=== PATIENT | female | born 1965 | race Caucasian/White ===

== ENCOUNTER 2020-07-28 18:07 | Emergency (ER) | payer MEDICARE, MEDICAID ==
[2020-07-28 18:14] VITALS: BP 158/89
[2020-07-28] MEDS ORDERED: CYCLOBENZAPRINE HCL 10 MG TABLET PO ONE (18:35)
--- NOTE | 2020-07-28 18:40 | ER Document Report ---
HPI - HPI Patient complains to provider of: chronic back pain Time Seen by Provider: 07/28/20 18:30 Context: 54-year-old female past medical history significant for hypertension, diabetes, hyperlipidemia presents to the emergency room complaining of worsening back pain for the past 2 weeks. Patient with a history of chronic back pain with surgery in 2004. States she relocated here a month ago from [place] as an appointment on Thursday with a new provider. States she normally takes hydrocodone or Percocet for her pain which she currently does not have any of. She denies any new trauma or injury. Denies loss control of bowels or bladder. No saddle anesthesia. No red flags. States she has been taking Tylenol with ibuprofen without any relief. Denies any urinary symptoms. Associated Symptoms: None Exacerbated by: Movement, Walking Relieved by: Denies Similar symptoms previously: No Recently seen / treated by doctor: No - ROS Systems Reviewed and Negative: Yes All other systems reviewed and negative - CONSTITUTIONAL Constitutional: DENIES: Fever - NEURO Neurology: DENIES: Weakness - RESPIRATORY Respiratory: DENIES: Trouble Breathing - GASTROINTESTINAL Gastrointestinal: DENIES: Nausea, Patient vomiting - REPRODUCTIVE Reproductive: REPORTS: Postmenopausal. DENIES: : - MUSCULOSKELETAL Musculoskeletal: REPORTS: Back Pain - DERM Skin Color: Normal Skin Problems: None Past Medical History - General Information source: Patient - Social History Smoking Status: Current Every Day Smoker Frequency of alcohol use: None Drug Abuse: None Family History: Reviewed & Not Pertinent Vertical Provider Document - CONSTITUTIONAL Agree With Documented VS: Yes Exam Limitations: No Limitations General Appearance: Mild Distress - INFECTION CONTROL TRAVEL OUTSIDE OF THE [place] IN LAST 30 DAYS: No - HEENT HEENT: Atraumatic, Normocephalic - NECK Neck: Normal Inspection, Supple, Thyroid Normal - RESPIRATORY Respiratory: Breath Sounds Normal, No Respiratory Distress - CARDIOVASCULAR Cardiovascular: Regular Rate, Regular Rhythm, No Murmur - BACK Back: Abnormal Inspection - Tenderness on palpation from L4-S1. Tenderness of the left sciatic notch. Spasm palpated in the lower lumbar region. No step- offs. No obvious deformities noted.. negative: CVA Tenderness-Right, CVA Tenderness-Left - MUSCULOSKELETAL/EXTREMETIES Musculoskeletal/Extremeties: FROM Notes: Negative straight leg raising bilaterally - NEURO Level of Consciousness: Awake, Alert Motor/Sensory: No Motor Deficit, No Sensory Deficit Deep Tendon Reflexes: 2+ Notes: She is ambulatory with a steady gait. She is neurovascularly intact. - DERM Integumentary: Warm, Dry, No Rash Course - Re-evaluation Re-evalutation: 07/28/20 18:37 Patient with a history of chronic back pain recently moved here from [place]. States she has an appointment next week for her chronic pain. States she used to take hydrocodone and Percocet which she has been out of for over a month. Was counseled that we cannot prescribe narcotics for chronic pain. Patient with diabetes with multiple allergies. Will give 1 Flexeril po in the ED and discharged home on Flexeril. Patient counseled to follow-up next week as scheduled with her doctor. Patient was given strict return to the emergency room guidelines. Return for any new or worsening symptoms. All questions were answered. Patient verbalized understanding and agrees with plan of care. 07/28/20 18:52 - Vital Signs Vital signs: Temp Pulse Resp BP Pulse Ox 98.2 F 80 16 158/89 H 98 07/28/20 18:13 07/28/20 18:13 07/28/20 18:13 07/28/20 18:13 07/28/20 18:13 Discharge - Discharge Clinical Impression: Chronic back pain Qualifiers: Back pain location: low back pain Back pain laterality: midline Sciatica presence: with sciatica Sciatica laterality: sciatica of left side Qualified Code(s): M54.42 - Lumbago with sciatica, left side Condition: Stable Disposition: HOME, SELF-CARE Instructions: Chronic Back Pain ([facility]), Sciatica ([facility]) Additional Instructions: You have been seen in the Emergency Department (ED) today for back pain. Your workup and exam have not shown any acute abnormalities and you are likely suffering from muscle strain or possible problems with your discs, but there is no treatment that will fix your symptoms at this time. Please take the flexeril that has been prescribed as directed. You should also purchase a local lidocaine cream such as "aspercreme with lidocaine" and use per bottle instructions to the affected area. Apply heat to the area as often as you are able. Continue to keep active and avoid prolonged periods of bed rest. Please follow up with your doctor as soon as possible regarding today's ED visit and your back pain. Return to the ED for worsening back pain, fever, weakness or numbness of either leg, or if you develop either (1) an inability to urinate or have bowel movements, or (2) loss of your ability to control your bathroom functions (if you start having "accidents"), or if you develop other new symptoms that concern you.concern you. Prescriptions: Cyclobenzaprine HCl [Flexeril 10 mg Tablet] 10 mg PO TIDP PRN #15 tab PRN Reason:
== END 2020-07-28 18:49 | disposition home or self-care (01) ==
LOC: ER 18:07
DX: M54.42 Lumbago with sciatica, left side (principal); G89.29 Other chronic pain; M54.9 Dorsalgia, unspecified; I10 Essential (primary) hypertension; E11.9 Type 2 diabetes mellitus without complications; E78.5 Hyperlipidemia, unspecified; F17.200 Nicotine dependence, unspecified, uncomplicated
CPT/HCPCS: 99283; A9270

== ENCOUNTER → 2020-08-01 | Outpatient (CLI) | payer MEDICARE, MEDICAID ==
--- NOTE | 2020-08-01 12:36 | RADIOLOGY REPORT (SQ) ---
EXAM DESCRIPTION: LUMBAR SPINE COMPLETE IMAGES COMPLETED DATE/TIME: 08/01/2020 9:37 am REASON FOR STUDY: LUMBAGO WITH SCIATICA, LEFT SIDE M54.42 LUMBAGO WITH SCIATICA, LEFT SIDE COMPARISON: None. NUMBER OF VIEWS: Five views including obliques. TECHNIQUE: AP, lateral, oblique, and sacral radiographic images acquired of the lumbar spine. LIMITATIONS: None. FINDINGS: MINERALIZATION: Normal. SEGMENTATION: There appears to be sacralization of L5. ALIGNMENT: Normal. VERTEBRAE: Maintained height. No fracture or worrisome bone lesion. DISCS: There is narrowing of what appears to be the L4-5 disc space and of the L3-4 disc space. Ther e is only a rudimentary disc at L5-S1 POSTERIOR ELEMENTS: Hypertrophic facet changes from L4-S1. HARDWARE: None in the spine. PARASPINAL SOFT TISSUES: Normal. PELVIS: Intact as visualized. No fractures or worrisome bone lesions. SI joints intact. OTHER: No other significant finding. IMPRESSION: There appears to be sacralization of L5. Disc changes and facet arthropathy. These fin dings are based upon the assumption of sacralization of L5. TECHNICAL DOCUMENTATION: JOB ID: [id number] 2010 [employer]- All Rights Reserved Reading location - IP/workstation name: [email or web address]
== END ==
LOC: OD 09:04
PROVIDERS: ATTEND Nurse Practitioner Family
DX: M54.42 Lumbago with sciatica, left side (principal)
CPT/HCPCS: 72110

== ENCOUNTER 2020-08-14 17:27 | Emergency (ER) | payer MEDICARE, MEDICAID ==
[2020-08-14 17:35] VITALS: BP 160/89
--- NOTE | 2020-08-14 17:57 | ER Document Report ---
HPI - HPI Time Seen by Provider: 08/14/20 17:47 Pain Level: 4 Notes: 54-year-old female presents emergency room today for evaluation of right shoulder pain after she tripped over her dog and fell down 4 stairs, states she is now having right shoulder pain. Has been trying [id number] Tylenol and ibuprofen without full relief. Denies hitting head or change in level consciousness. Orts pain is 3 out of 5, throbbing achy. Has not tried any heat or icing. Denies any prior history of shoulder fractures dislocations. Denies any numbness or tingling running down bilateral arms. Denies fevers, chills, chest pain,palpitations, shortness of breath, dyspnea, nausea, vomiting, diarrhea, abdominal pain, hematuria,blurred vision, double vision, loss of vision, speech changes, LH, dizziness, syncope, headaches, wheezing, ST, URI, neck pain, weakness, bowel or bladder dysfunction, saddle anesthesia, numbness or tingling in bilateral upper or lower extremities equally, muscle paralysis, weakness in bilateral upper or lower extremities equally or rash. Denies IV drug use. MEDICATIONS: I agree with the patient medications as charted by the RN. ALLERGIES: I agree with the allergies as charted by the RN. PAST MEDICAL HISTORY/PAST SURGICAL HISTORY: Reviewed and agree as charted by RN. SOCIAL HISTORY: Reviewed and agree as charted by RN. FAMILY HISTORY: No significant familial comorbid conditions directly related to patient complaint EXAM: Reviewed vital signs as charted by RN. REVIEW OF SYSTEMS:reviewed vital signs by RN CONSTITUTIONAL : Denies fever, chills, or sweats. Denies recent illness. EENT: Denies eye, ear, throat, or mouth pain or symptoms. Denies nasal or sinus congestion or discharge. Denies throat, tongue, or mouth swelling or difficulty swallowing. CARDIOVASCULAR: Denies chest pain. Denies palpitations or racing or irregular heart beat. Denies ankle edema. RESPIRATORY: Denies cough, cold, or chest congestion. Denies shortness of breath, difficulty breathing, or wheezing. GASTROINTESTINAL: Denies abdominal pain or distention. Denies nausea, vomiting, or diarrhea. Denies blood in vomitus, stools, or per rectum. Denies black, tarry stools. Denies constipation. GENITOURINARY: Denies difficulty urinating, painful urination, burning, frequency, blood in urine, or discharge. FEMALE GENITOURINARY: Denies vaginal bleeding, heavy or abnormal periods, irregular periods. Denies vaginal discharge or odor. MUSCULOSKELETAL: reports right shoulder pain. Denies back or neck pain or stiffness. Denies joint pain or swelling. SKIN: Denies rash, lesions or sores. HEMATOLOGIC : Denies easy bruising or bleeding. LYMPHATIC: Denies swollen, enlarged glands. NEUROLOGICAL: Denies confusion or altered mental status. Denies passing out or loss of consciousness. Denies dizziness or lightheadedness. Denies headache. Denies weakness or paralysis or loss of use of either side. Denies problems with gait or speech. Denies sensory loss, numbness, or tingling. Denies seizures. PSYCHIATRIC: Denies anxiety or stress. Denies depression, suicidal ideation, or homicidal ideation. ALL OTHER SYSTEMS REVIEWED AND NEGATIVE. PHYSICAL EXAMINATION: GENERAL: Well-appearing, well-nourished and in no acute distress. HEAD: Atraumatic, normocephalic. EYES: Pupils equal round and reactive to light, extraocular movements intact, conjunctiva are normal. ENT: Nares patent, oropharynx clear without exudates. Moist mucous membranes. NECK: Normal range of motion, supple without lymphadenopathy LUNGS: Breath sounds clear to auscultation bilaterally and equal. No wheezes rales or rhonchi. HEART: Regular rate and rhythm without murmurs ABDOMEN: Soft, nontender, nondistended abdomen. No guarding, no rebound. No masses appreciated. Female : deferred Musculoskeletal: Normal range of motion, no pitting or edema. No cyanosis. right shoulder pain with abduction and flexion. noted some pain with supination, pronation, extension of right elbow and shoulder. 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 APROM in shoulder. DTR +2 in BUE equally. Noted crepitus with APROM in elbow. negative drop arm, neer sign, lambert test bilaterally. slightly positive impingement sign all on right. No vascular compromise. Neck with full APROM, no cervical spinal tenderness. No tenderness over clavicles or step off noted bilaterally. Strength 5 out of 5 in bilateral upper extremities equally. NEUROLOGICAL: Cranial nerves grossly intact. Normal speech, normal gait. Normal sensory, motor exams PSYCH: Normal mood, normal affect. SKIN: Warm, Dry, normal turgor, no rashes or lesions noted. Dictation was performed using [employer] voice recognition software - REPRODUCTIVE Reproductive: DENIES: : Past Medical History - Social History Smoking Status: Current Every Day Smoker Chew tobacco use (# tins/day): No Frequency of alcohol use: None Drug Abuse: None Family History: Reviewed & Not Pertinent Patient has homicidal ideation: No - Past Medical History Cardiac Medical History: Reports: Hx Hypercholesterolemia, Hx Hypertension Endocrine Medical History: Reports: Hx Diabetes Mellitus Type 2 Psychiatric Medical History: Reports: Hx Bipolar Disorder Past Surgical History: Reports: Hx Gynecologic Surgery, Hx Orthopedic Surgery - back, Hx Tonsillectomy Vertical Provider Document - INFECTION CONTROL TRAVEL OUTSIDE OF THE [place] IN LAST 30 DAYS: No Course - Re-evaluation Re-evalutation: 08/14/20 18:32 Afebrile vital stable no distress. Nurses notes reviewed. X-ray of right shoulder and right elbow negative for any acute fracture dislocation or foreign body. Will place patient in a sling. Will give patient muscle relaxers and anti-inflammatories. Advised to not drive, drink alcohol or operate heavy machinery while taking medication as it can cause sedation or impairment of cognitive function. Advised to follow-up with her up with an testing specialist within next 24 to 48 hours. After performing a Medical Screening Examination, I estimate there is LOW risk for OPEN FRACTURE, COMPARTMENT SYNDROME, DEEP VENOUS THROMBOSIS, ACUTE TENDON RUPTURE, or NEUROVASCULAR INJURY thus I consider the discharge disposition reasonable. I have reevaluated this patient multiple times and no significant life threatening changes are noted. The patient and I have discussed the diagnosis and risks, and we agree with discharging home to closely follow-up with their primary doctor or the referral orthopedist with the understanding that symptoms and presentations can change. We also discussed returning to the Emergency Department immediately if new or worsening symptoms occur. We have discussed the symptoms which are most concerning (e.g., changing or worsening pain, numbness, weakness) that necessitate immediate return - Vital Signs Vital signs: Temp Pulse Resp BP Pulse Ox 98.3 F 69 16 160/89 H 99 08/14/20 17:35 08/14/20 17:35 08/14/20 17:35 08/14/20 17:35 08/14/20 17:35 Discharge - Discharge Clinical Impression: Right shoulder pain, Right elbow pain Condition: Stable Disposition: HOME, SELF-CARE Instructions: Exercise Program for the Shoulder ([facility]), Shoulder Injury ([facility]), Sling as Treatment ([facility]), Muscle Relaxers ([facility]), Muscle Strain ([facility]) Additional Instructions: X-ray of your shoulder and of your elbow were negative today. No fracture or foreign body or dislocation. You were given a sling. Please wear this to help immobilize your shoulder and elbow. Please take your self out of the sling a couple times a day so that it does not get contractured. Please follow-up with an testing specialist within the next few days. Please do not drive, drink alcohol or operate heavy machinery while taking medication as it can cause sedation or impairment of cognitive function. Apply heat 20 minutes on 20 minutes off several times a day. Return immediately for any new or worsening symptoms. Follow up with primary care provider, call tomorrow to make followup a ppointment. Prescriptions: Naproxen 500 mg PO BID #10 tablet Methocarbamol [Robaxin 500 mg Tablet] 500 mg PO QID PRN #15 tablet PRN Reason: Forms: Return to Work Referrals: HUNTER MCMAHAN NP [Primary Care Provider] - Follow up as needed AZUCENA MONTOYA DO [ACTIVE STAFF] - Follow up in 3-5 days (as needed)
--- NOTE | 2020-08-14 18:22 | RADIOLOGY REPORT (SQ) ---
EXAM DESCRIPTION: ELBOW RIGHT OVER 2 VIEWS IMAGES COMPLETED DATE/TIME: 08/14/2020 6:08 pm REASON FOR STUDY: pain s/p fall x 3 days ago COMPARISON: None. NUMBER OF VIEWS: Four views. TECHNIQUE: AP, lateral, and both oblique radiographic images acquired of the right elbow. LIMITATIONS: None. FINDINGS: MINERALIZATION: Normal. BONES: No acute fracture or dislocation. No worrisome bone lesions. JOINT: No effusion. SOFT TISSUES: No soft tissue swelling. No foreign body. OTHER: No other significant finding. IMPRESSION: NEGATIVE STUDY OF THE RIGHT ELBOW. NO RADIOGRAPHIC EVIDENCE OF ACUTE INJURY. TECHNICAL DOCUMENTATION: JOB ID: [id number] 2010 [employer]- All Rights Reserved Reading location - IP/workstation name: [email or web address]
--- NOTE | 2020-08-14 18:23 | RADIOLOGY REPORT (SQ) ---
EXAM DESCRIPTION: SHOULDER RIGHT 2 OR MORE VIEWS IMAGES COMPLETED DATE/TIME: 08/14/2020 6:08 pm REASON FOR STUDY: pain s/p fall x 3 d ago COMPARISON: None. NUMBER OF VIEWS: Three views. TECHNIQUE: Internal rotation, external rotation, and Y view images acquired of the right shoulder. LIMITATIONS: None. FINDINGS: MINERALIZATION: Normal. BONES: No acute fracture. No worrisome bone lesions. JOINTS: No dislocation. VISUALIZED LUNGS AND RIBS: No pneumothorax. No rib fracture. SOFT TISSUES: No radiopaque foreign body. OTHER: No other significant finding. IMPRESSION: NEGATIVE STUDY OF THE RIGHT SHOULDER. NO RADIOGRAPHIC EVIDENCE OF ACUTE INJURY. TECHNICAL DOCUMENTATION: JOB ID: [id number] 2010 [employer]- All Rights Reserved Reading location - IP/workstation name: [email or web address]
== END 2020-08-14 18:44 | disposition home or self-care (01) ==
LOC: ER 17:27
DX: M25.511 Pain in right shoulder (principal); M25.521 Pain in right elbow; W10.9XXA Fall (on) (from) unspecified stairs and steps, initial encounter; E78.00 Pure hypercholesterolemia, unspecified; I10 Essential (primary) hypertension; E11.9 Type 2 diabetes mellitus without complications; F17.200 Nicotine dependence, unspecified, uncomplicated
CPT/HCPCS: 99283

== ENCOUNTER 2020-09-05 13:22 | Emergency (ER) | payer MEDICARE, MEDICAID ==
--- NOTE | 2020-09-05 13:37 | ER Document Report ---
ED Medical Screen (RME) - General Chief Complaint: Flank Pain Stated Complaint: URINARY ISSUE Time Seen by Provider: 09/05/20 13:29 Primary Care Provider: HUNTER MCMAHAN DURABLE MEDICAL EQUIPMENT REPAIRER [Primary Care Provider] - Follow up as needed Mode of Arrival: Ambulatory Information source: Patient Notes: 54-year-old female presented to ED for flank pain with burning with urination. She has no nausea or vomiting. She stated she did have abdominal pain. But is more to the right flank and generalized the abdomen. She is alert oriented respirations regular nonlabored speaking in full sentences. She does have a history of diabetes high blood pressure cholesterol COPD smokes a pack and a half a day and does not drink or drug. Will get CT rule out kidney stone and blood in urine. She does have tenderness to the right flank right upper and lower abdomen and suprapubic area. I have greeted and performed a rapid initial assessment of this patient. A comprehensive ED assessment and evaluation of the patient, analysis of test results and completion of medical decision making process will be conducted by an additional ED providers. TRAVEL OUTSIDE OF THE [place] IN LAST 30 DAYS: No - Related Data Allergies/Adverse Reactions: ciprofloxacin Allergy (Verified 09/05/20 13:33) ketorolac [From Toradol] Allergy (Verified 09/05/20 13:33) mirtazapine [From Remeron] Allergy (Verified 09/05/20 13:33) Penicillins Allergy (Verified 09/05/20 13:33) tramadol Allergy (Verified 09/05/20 13:33) nubane Allergy (Uncoded 09/05/20 13:33) Home Medications: dm. bp. cholesterol. copd. percocet Past Medical History - Social History Chew tobacco use (# tins/day): No Frequency of alcohol use: None Drug Abuse: None - Past Medical History Cardiac Medical History: Reports: Hx Hypercholesterolemia, Hx Hypertension Endocrine Medical History: Reports: Hx Diabetes Mellitus Type 2 Psychiatric Medical History: Reports: Hx Bipolar Disorder Past Surgical History: Reports: Hx Gynecologic Surgery, Hx Orthopedic Surgery - back, Hx Tonsillectomy Physical Exam - Vital signs Vitals: Temp 98.7 F 09/05/20 13:30 Course - Vital Signs Vital signs: Temp Pulse Resp BP Pulse Ox 98.7 F 09/05/20 13:30 Doctor's Discharge - Discharge Referrals: HUNTER MCMAHAN, DURABLE MEDICAL EQUIPMENT REPAIRER [Primary Care Provider] - Follow up as needed
[2020-09-05 14:02] LABS: ABSOLUTE BASOPHILS # (AUTO) 0.1 10^3/uL (0.0-0.2); ABSOLUTE EOSINOPHILS # (AUTO) 0.2 10^3/uL (0.0-0.6); ABSOLUTE LYMPHOCYTES (AUTO) 3.4 10^3/uL (0.5-4.7); ABSOLUTE MONOCYTES (AUTO) 0.6 10^3/uL (0.1-1.4); ABSOLUTE NEUT (AUTO) 7.4 10^3/uL (1.7-8.2); BASOPHILS % (AUTO) 1.1 % (0-2); EOSINOPHILS % (AUTO) 1.5 % (0-6); HEMATOCRIT 34.9 % (36.0-47.0); HEMOGLOBIN 11.4 g/dL (12.0-15.5); LYMPHOCYTES % (AUTO) 29.2 % (13-45); MEAN CORPUSCULAR HEMOGLOBIN 25.5 pg (27.0-33.4); MEAN CORPUSCULAR HGB CONC 32.7 g/dL (32.0-36.0); MEAN CORPUSCULAR VOLUME 78 fl (80-97); PLATELET COUNT 370 10^3/uL (150-450); RED BLOOD COUNT 4.48 10^6/uL (3.72-5.28); RED CELL DISTRIBUTION WIDTH 16.8 % (11.5-14.0); SEGMENTED NEUTROPHILS % (AUTO) 63.2 % (42-78); TOTAL CELLS COUNTED % (AUTO) 100 %; WHITE BLOOD COUNT 11.7 10^3/uL (4.0-10.5)
[2020-09-05 14:12] LABS: APPEARANCE,URINE SLIGHTLY-CLOUDY; BILIRUBIN,URINE NEGATIVE (NEGATIVE); COLOR,URINE AMBER; GLUCOSE, URINE NEGATIVE (NEGATIVE); KETONES,URINE NEGATIVE (NEGATIVE); LEUKOCYTE ESTERASE,URINE NEGATIVE (NEGATIVE); NITRITE,URINE POSITIVE (NEGATIVE); PROTEIN,URINE >=500 mg/dL (NEGATIVE); URINE SPECIFIC GRAVITY 1.027; UROBILINOGEN,URINE NEGATIVE mg/dL (<2.0)
[2020-09-05 14:19] LABS: ALKALINE PHOSPHATASE 125 U/L (38-126); ANION GAP 17 (5-19); ASPARTATE AMINO TRANSFERASE 32 U/L (14-36); BILIRUBIN,DIRECT 0.2 mg/dL (0.0-0.4); BILIRUBIN,TOTAL 0.4 mg/dL (0.2-1.3); BLOOD UREA NITROGEN 16 mg/dL (7-20); CALCIUM 10.2 mg/dL (8.4-10.2); CARBON DIOXIDE 26 mmol/L (22-30); CHLORIDE 98 mmol/L (98-107); GLUCOSE 163 mg/dL (75-110); POTASSIUM 4.2 mmol/L (3.6-5.0); TOTAL PROTEIN 8.8 g/dL (6.3-8.2)
--- NOTE | 2020-09-05 14:19 | RADIOLOGY REPORT (SQ) ---
EXAM DESCRIPTION: CT ABD/PELVIS NO ORAL OR IV IMAGES COMPLETED DATE/TIME: 09/05/2020 1:58 pm REASON FOR STUDY: Right flank pain COMPARISON: None. TECHNIQUE: CT scan of the abdomen and pelvis performed without intravenous or oral contrast. Images reviewed with lung, soft tissue, and bone windows. Reconstructed coronal and sagittal MPR images revi ewed. All images stored on PACS. All CT scanners at this facility use dose modulation, iterative reconstruction, and/or weight based d osing when appropriate to reduce radiation dose to as low as reasonably achievable (ALARA). [facility]: Dose Right [facility]: CareDose [facility]: Dose Right [facility]: Teradose 4D [facility]: Smart GlocalReach RADIATION DOSE: CT Rad equipment meets quality standard of care and radiation dose reduction techniq ues were employed. CTDIvol: 9.5 mGy. DLP: 527 mGy-cm.mGy. LIMITATIONS: None. FINDINGS: LOWER CHEST: No significant findings. No nodules or infiltrates. NON-CONTRASTED LIVER, SPLEEN, ADRENALS: Evaluation limited by lack of IV contrast. No identified sign ificant masses. PANCREAS: No masses. No peripancreatic inflammatory changes. GALLBLADDER: No identified stones by CT criteria. No inflammatory changes to suggest cholecystitis. RIGHT KIDNEY AND URETER: No suspicious masses. Assessment limited by lack of IV contrast. No signif icant calcifications. No hydronephrosis or hydroureter. LEFT KIDNEY AND URETER: No suspicious masses. Assessment limited by lack of IV contrast. No signifi cant calcifications. No hydronephrosis or hydroureter. AORTA AND RETROPERITONEUM: No aneurysm. No retroperitoneal masses or adenopathy. BOWEL AND PERITONEAL CAVITY: No obvious masses or inflammatory changes. No free fluid. APPENDIX: Normal. PELVIS, BLADDER, AND ABDOMINAL WALL:Marked emphysematous cystitis. No soft tissue masses. BONES: No significant findings. OTHER: No other significant finding. IMPRESSION: Marked emphysematous cystitis of the bladder. COMMENT: Quality ID # [id number]: Final reports with documentation of one or more dose reduction techniques (e.g., Automated exposure control, adjustment of the mA and/or kV according to patient size, use of iterative reconstruction technique) TECHNICAL DOCUMENTATION: JOB ID: [id number] 2010 [employer]- All Rights Reserved Reading location - IP/workstation name: [email or web address]
--- NOTE | 2020-09-05 14:56 | ER Document Report ---
ED GI/ - General Chief Complaint: Flank Pain Stated Complaint: URINARY ISSUE Time Seen by Provider: 09/05/20 13:29 Primary Care Provider: HUNTER MCMAHAN NP [Primary Care Provider] - Follow up as needed Mode of Arrival: Ambulatory Notes: Patient is a 54-year-old female comes emergency room with a 3-day onset of dysuria. Patient states she has a history urine tract infections and she started with burning and increased urination over 2 to 3 days ago. She denies having any fevers no nausea no vomiting. She has had a little bit of low back pain bilaterally. She states this is how she gets when she gets urinary tract infections. Patient has a history of diabetes taking both Metformin and Trulicity. She also has a history of hypertension. Patient also does smoke. TRAVEL OUTSIDE OF THE [place] IN LAST 30 DAYS: No - HPI Patient complains to provider of: Dysuria. No: Hematuria Onset: Other - 3 days Timing/Duration: Constant, Waxing and waning Quality of pain: Achy, Burning, Pressure Severity at maximum: Moderate Severity in ED: Moderate Pain Level: 3 Location: No: Chest pain Vaginal bleeding (Compared to normal period): None Menstrual period history: Abnormal, Post-menopausal - Related Data Allergies/Adverse Reactions: ciprofloxacin Allergy (Verified 09/05/20 13:33) ketorolac [From Toradol] Allergy (Verified 09/05/20 13:33) mirtazapine [From Remeron] Allergy (Verified 09/05/20 13:33) Penicillins Allergy (Verified 09/05/20 13:33) tramadol Allergy (Verified 09/05/20 13:33) nubane Allergy (Uncoded 09/05/20 13:33) Home Medications: dm. bp. cholesterol. copd. percocet Past Medical History - General Information source: Patient - Social History Smoking Status: Current Every Day Smoker Cigarette use (# per day): Yes - Half pack cigarettes a day Chew tobacco use (# tins/day): No Frequency of alcohol use: None Drug Abuse: None Lives with: Family Family History: Reviewed & Not Pertinent Patient has homicidal ideation: No - Past Medical History Cardiac Medical History: Reports: Hx Hypercholesterolemia, Hx Hypertension Endocrine Medical History: Reports: Hx Diabetes Mellitus Type 2 Psychiatric Medical History: Reports: Hx Bipolar Disorder Past Surgical History: Reports: Hx Gynecologic Surgery, Hx Orthopedic Surgery - back, Hx Tonsillectomy Review of Systems - Review of Systems Constitutional: denies: Fever EENT: No symptoms reported Cardiovascular: No symptoms reported Respiratory: No symptoms reported Gastrointestinal: No symptoms reported Genitourinary: See HPI, Burning, Dysuria, Frequency, Urgency. denies: Flank pain Female Genitourinary: No symptoms reported Musculoskeletal: No symptoms reported Skin: No symptoms reported Hematologic/Lymphatic: No symptoms reported Neurological/Psychological: No symptoms reported -: Yes All other systems reviewed and negative Physical Exam - Vital signs Vitals: Temp Pulse Resp BP Pulse Ox 98.7 F 79 20 135/79 H 100 09/05/20 13:29 09/05/20 13:29 09/05/20 13:29 09/05/20 13:29 09/05/20 13:29 Interpretation: Hypertensive - Notes Notes: PHYSICAL EXAMINATION: GENERAL: Well-appearing, well-nourished and in no acute distress. HEAD: Atraumatic, normocephalic. LUNGS: Breath sounds clear to auscultation bilaterally and equal. No wheezes rales or rhonchi. HEART: Regular rate and rhythm without murmurs ABDOMEN: Examination patient's abdomen shows she has bowel sounds present 4 quads. She is nontender to palpate in all 4 quads. She does have some moderate amount of tenderness suprapubically to palpation. Female : deferred/patient denies any discharge vaginally and does not want a pelvic exam. Musculoskeletal: Examination patient's back shows she has some mild bilateral lower back discomfort to percussion. Not any flank pain per se at this time. Patient is moving all extremities without any difficulties. She is walking heel-to-toe with normal movement. NEUROLOGICAL: Normal speech, normal gait. Normal sensory, motor exams PSYCH: Normal mood, normal affect. SKIN: Warm, Dry, normal turgor, no rashes or lesions noted. Course - Re-evaluation Re-evalutation: 09/05/20 15:01 Patient was originally triaged from given that person history of UTIs in the past and feeling like this is similar. Lab work was reordered patient has a slight elevated white count of 10.9. All other labs look relatively good. Her urine does come back showing positive nitrates. We will go ahead and treat her with some Keflex and Pyridium and Diflucan. - Vital Signs Vital signs: Temp Pulse Resp BP Pulse Ox 98.7 F 79 20 135/79 H 100 09/05/20 13:30 09/05/20 13:29 09/05/20 13:29 09/05/20 13:29 09/05/20 13:29 - Laboratory Result Diagrams: 09/05/20 13:50 09/05/20 13:50 Laboratory results interpreted by me: 09/05/20 09/05/20 09/05/20 13:50 13:50 13:50 WBC 11.7 H Hgb 11.4 L Hct 34.9 L MCV 78 L MCH 25.5 L RDW 16.8 H Glucose 163 H Total Protein 8.8 H Urine Protein >=500 H Urine Nitrite POSITIVE H Discharge - Discharge Clinical Impression: Urinary tract infection Qualifiers: Urinary tract infection type: acute cystitis Hematuria presence: without hematuria Qualified Code(s): N30.00 - Acute cystitis without hematuria Condition: Stable Disposition: HOME, SELF-CARE Instructions: Cephalexin ([facility]), Urinary Anesthetic Agent ([facility]), Urinary Tract Infection ([facility]) Additional Instructions: Home and rest. Medication as prescribed. Increase your fluid intake but avoid sodas and foods and high sugar content. Monitor your blood sugars closely. Return to ER if you should spike a fever or have increasing amount of pain or discomfort. Follow-up with your primary care provider within the next 7 to 10 days for reevaluation. Prescriptions: Fluconazole [Diflucan] 150 mg PO ONCE #1 tablet Cephalexin Monohydrate [Keflex 500 mg Capsule] 500 mg PO TID 7 Days #21 capsule Phenazopyridine HCl [Pyridium 200 mg Tablet] 200 mg PO TID #6 tablet Forms: Smoking Cessation Education Referrals: HUNTER MCMAHAN NP [Primary Care Provider] - Follow up as needed
[2020-09-05 15:23] VITALS: BP 135/79
--- OUTSIDE RECORDS SUMMARY | 2020-09-07 14:41 | XMS REPORT ---
:1965 Author Organization [facility] Address [id number] [place] [address] Care Team Providers Name Role Phone Karlene Hinojosa Attending Clinician Unavailable Allergies, Adverse Reactions, Alerts Allergy Name Allergy Status Severity Reaction(s) Onset Inactive Treat ing Comments Type Date Date Clinician CIPROFLOXACI Drug Active Unknown 2019-10 N allergy 0-06 00:00: 00 KETOROLAC Drug Active Unknown 2019-10 TROMETHAMINE allergy 0-06 00:00: 00 PENICILLINS Miscellaneo Active Unknown 2019-10 us allergy 0-06 00:00: 00 Medications This patient has no known medications. Problems This patient has no known problems. Procedures Procedure Date / Time Performed Performing Clinician Devic e OFFICE/OUTPATIENT VISIT EST 2020-08-24 11:00:00 [facility] MED/CURRENT MED MERGE 2020-08-24 11:00:00 OFFICE/OUTPATIENT VISIT EST 2020-08-03 11:00:00 OFFICE/OUTPATIENT VISIT NEW 2020-07-31 13:30:00 Results Test Description Test Time Test Comments Text Results Atomic Results Result Comments RHEUMATOID FACTOR (IGG) 2020-08-30 02:15:00 Test Item Value Reference Range Comments RHEUMATOID FACTOR (IGG) (test code = 6 U Reference Range:<=6 NEGATIVE>6 POSITIVE 13520-0) RHEUMATOID FACTOR (IGA)2020-08-30 02:15:00 Test Item Value Reference Range Comments RHEUMATOID FACTOR (IGA) (test <5 U Re ference Range:<=6 NEGATIVE>6 code = 32084-8) POSITIVE RHEUMATOID FACTOR (IGM)2020-08-30 02:15:00 Test Item Value Reference Range Comments RHEUMATOID FACTOR (IGM) (test <5 U Re ference Range:<=6 NEGATIVE>6 code = 89794-1) POSITIVE CYCLIC CITRULLINATED PEPTIDE (CCP) AB (IGG)2020-08-30 02:15:00 Test Item Value Reference Range Comments CYCLIC CITRULLINATED PEPTIDE <16 Units Ref erence (CCP) AB (IGG) (test code = Rang e:NEGATIVE:<20WEAK 10921-4) POSITIVE:20-39MO DERATE POSITIVE:40-59ST MIHAELA POSITIVE>59 SJOGREN'S ANTIBODY (SS-A)2020-08-30 02:15:00 Test Item Value Reference Range Comments SJOGREN'S ANTIBODY (SS-A) (test code = 19264-3) <1.0 NEG AI <1.0 NEGATIVE SJOGREN'S ANTIBODY (SS-B)2020-08-30 02:15:00 Test Item Value Reference Range Comments SJOGREN'S ANTIBODY (SS-B) (test code = 61522-3) <1.0 NEG AI <1.0 NEG 14.3.3 ETA [id number] 02:15:00 Test Item Value Reference Range Comments 14.3.3 ETA PROTEIN <0.2 ng/mL <0.2 The 14-3-3eta protein is a marker of (test code = synovial inflamm ationthat is released 65278-8) into synovial fl uid and peripheral blood inrheumato id arthritis (RA) and erosive psoriati c arthritis.One in five RF and CCP seronegative early stage RA patient sis found to be positive for 14- 3-3eta protein. Patients withact kiya joint RA disease have higher valu es of 43-6-6krmoiwwbvj than those with inactive RA or psoriasis withou tarthritis. 14-3-3eta protein has a 93 % specificity inpatients with RA. Values > or = 0.2 ng/mL are elevat ed andindicative of RA disease or erosi ve psoriatic arthritis.Values >0.50 ng/mL are associated with more aggressive RAdisease and po orer outcomes. Unlike RF and CCP, 14-3 -3etaprotein is a therapeutically modifiable marker to monitorresponse to therapy. A decrease in 14-3-3eta pro tein inresponse to DMARDs (disease- modifying antirheumatic dr ugs)and anti-TNF (tumor necrosis factor) drugs indicates better clinical outcomes; an increase is asso ciated with worseoutcomes de spite apparent clinical remissi on.For further information plea se visit:[email or web address] test w as developed and its analytical perfo rmancecharacteristics have been determ ined by [facility] [place]. It h as not beencleared or approved by FDA. This assay has been validatedpursuan t to the CLIA regulations and is used for clinicalpurposes . THYROGLOBULIN [id number] 11:33:00 Test Item Value Reference Range Comments THYROGLOBULIN ANTIBODIES (test code = 8098-6) 64 IU/mL <= 1 THYROID PEROXIDASE [id number] 11:33:00 Test Item Value Reference Range Comments THYROID PEROXIDASE ANTIBODIES (test code = >900 IU/mL <9 8099-4) RHEUMATOID [id number] 04:01:00 Test Item Value Reference Range Comments RHEUMATOID FACTOR (test code = 13258-5) <14 IU/mL <14 TSH W/REFLEX TO [id number] 02:34:00 Test Item Value Reference Range Comments TSH W/REFLEX TO FT4 (test code = 3016-3) 33.92 mIU/L 0.40-4. 50 T4, [id number] 02:34:00 Test Item Value Reference Range Comments T4, FREE (test code = 3024-7) 1.0 ng/dL 0.8-1.8 RHEUMATOID [id number] 00:00:00<14TSH W/REFLEX TO [id number] 00:00:00 33.92T4, [id number] 00:00:001.0THYROID PEROXIDASE AND THYROGLOBULIN [id number] 00:00:00>900RHEUMATOID ARTHRITIS DIAGNOSTIC IDENTRA(TM) PANEL [id number] 00:00:00 Test Item Value Reference Range Comments RHEUMATOID FACTOR (IGM) (test code = 44531707) <5 U 14.3.3 ETA PROTEIN (test code = 54811700) <0.2 ng/mL <0.2 CYCLIC CITRULLINATED PEPTIDE (CCP) AB (IGG) <16 Units (test code = 37854240) SJOGREN'S ANTIBODY (SS-A) (test code = 73446321) <1.0 NEG AI <1.0 NEGATIVE SJOGREN'S ANTIBODY (SS-B) (test code = 61326672) <1.0 NEG AI <1.0 NEGATIVE VITAMIN D, 1,25 [id number] 12:33:00 Test Item Value Reference Range Comments VITAMIN D, 1,25 (OH)2, 47 pg/mL 18-72 TOTAL (test code = 99792-5) VITAMIN D3, 1,25 (OH)2 38 pg/mL (test code = 1649-3) VITAMIN D2, 1,25 (OH)2 9 pg/mL Vitamin D 3, 1,25(OH)2 indicates both (test code = 97555-4) endogenous production and supplementation. Vitamin D2, 1,25(OH)2is an i ndicator of exogenous sources, such as diet orsupplementatio n. Interpretation and therapy are base don measurement of Vitamin D,1,25(O H)2, Total.This test was developed an d its analyticalperfor theron characteristics have been determ inegamesGRABR Diagnostics [place].It has not been cleared or approved by t FDA. Thisassay has been validated p ursuant to the CLIAregulations and is used for clinical purpose s. VITAMIN B12/FOLATE, SERUM [id number] 06:55:00 Test Item Value Reference Range Comments VITAMIN B12 (test 275 pg/mL 200-1100 Please Note: A lthough the reference code = 2132-9) range for vitami nB12 is 200-1100 pg/mL, it has be en reported that between5 and 10% of patients with values between 2 00 and 400pg/mL may experience neuro psychiatric and hematologicabnor malities due to occult B12 defic iency; less than 1%of patients with va lues above 400 pg/mL will have sympto ms. FOLATE, SERUM (test 11.1 ng/mL >=5.5 Reference Ra ngeLow: <3.4Borderline: code = 2284-8) 3.4-5.4Normal: > 5.4 IRON AND TOTAL IRON BINDING [id number] 03:18:00 Test Item Value Reference Range Comments IRON, TOTAL (test code = 2498-4) 32 mcg/dL 45-160 IRON BINDING CAPACITY (test code = 2500-7) 435 mcg/dL (calc) 250 -450 % SATURATION (test code = 2502-3) 7 % (calc) 16-45 [id number] 03:18:00 Test Item Value Reference Range Comments FERRITIN (test code = 2276-4) 10 ng/mL 16-232 IRON, TIBC AND FERRITIN [id number] 09:22:00 Test Item Value Reference Range Comments FERRITIN (test code = 26226373) 10 ng/mL 16-232 IRON BINDING CAPACITY (test code = 435 mcg/dL (calc) 250-450 20962266) % SATURATION (test code = 06566640) 7 % (calc) 16-45 IRON, TOTAL (test code = 29361555) 32 mcg/dL 45-160 VITAMIN B12/FOLATE, SERUM [id number] 09:22:00 Test Item Value Reference Range Comments VITAMIN B12 (test code = 03955148) 275 pg/mL 200-1100 FOLATE, SERUM (test code = 10770719) 11.1 ng/mL T4, [id number] 10:08:000.4TSH W/REFLEX TO [id number] 10:08:0041.59 COMPREHENSIVE METABOLIC [id number] 10:08:00 Test Item Value Reference Range Comments AST (test code = 81874162) 28 U/L 10-35 ALKALINE PHOSPHATASE (test code = 92 U/L 37-153 96162548) CHLORIDE (test code = 05201387) 96 mmol/L 98-110 ALBUMIN/GLOBULIN RATIO (test code = 1.3 (calc) 1.0-2.5 65720337) GLUCOSE (test code = 06776649) 138 mg/dL 65-99 POTASSIUM (test code = 52723263) 4.2 mmol/L 3.5-5.3 CALCIUM (test code = 21518129) 9.0 mg/dL 8.6-10.4 ALT (test code = 33487524) 21 U/L 6-29 eGFR (test code = 96 mL/min/1.73m2 > OR = 60 64402310) SODIUM (test code = 14212405) 136 mmol/L 135-146 GLOBULIN (test code = 18401212) 3.4 g/dL (calc) 1.9-3.7 CREATININE (test code = 26721921) 0.80 mg/dL 0.50-1.05 UREA NITROGEN (BUN) (test code = 15 mg/dL 7-25 53038049) eGFR NON-AFR. MARTINIQUAIS (test code = 82 mL/min/1.73m2 > OR = 60 13703668) BILIRUBIN, TOTAL (test code = 0.4 mg/dL 0.2-1.2 86081187) PROTEIN, TOTAL (test code = 71249059) 7.8 g/dL 6.1-8.1 CARBON DIOXIDE (test code = 97816871) 30 mmol/L 20-32 BUN/CREATININE RATIO (test code = NOT APPLICABLE (calc) 6-22 31714552) ALBUMIN (test code = 47104011) 4.4 g/dL 3.6-5.1 ALBUMIN, RANDOM URINE [id number] 10:08:00 Test Item Value Reference Range Comments CREATININE, RANDOM URINE (test code = 116 mg/dL 20-275 22355953) ALBUMIN, URINE (test code = 68954722) 60.1 mg/dL ALBUMIN/CREATININE RATIO, RANDOM URINE 518 mcg/mg creat <30 (test code = 97976244) CBC (INCLUDES DIFF/PLT)2020-08-01 10:08:00 Test Item Value Reference Range Comments EOSINOPHILS (test code = 00685338) 2.3 % MPV (test code = 46619922) 11.0 fL 7.5-12.5 ABSOLUTE EOSINOPHILS (test code = 21598000) 230 cells/uL 15-5 00 MCH (test code = 25735689) 24.9 pg 27.0-33.0 RDW (test code = 89686362) 18.6 % 11.0-15.0 NEUTROPHILS (test code = 40620897) 62.1 % LYMPHOCYTES (test code = 07839092) 29.5 % ABSOLUTE BASOPHILS (test code = 85410965) 90 cells/uL 0-200 ABSOLUTE MONOCYTES (test code = 30739077) 520 cells/uL 200-95 0 WHITE BLOOD CELL COUNT (test code = 10.0 Thousand/uL 3.8-10.8 75344577) ABSOLUTE NEUTROPHILS (test code = 13182678) 6210 cells/uL 1500 -7800 HEMOGLOBIN (test code = 35303975) 10.7 g/dL 11.7-15.5 MONOCYTES (test code = 79612003) 5.2 % RED BLOOD CELL COUNT (test code = 55588875) 4.29 Million/uL 3.80 -5.10 BASOPHILS (test code = 33821641) 0.9 % MCHC (test code = 47685904) 31.1 g/dL 32.0-36.0 HEMATOCRIT (test code = 24568488) 34.4 % 35.0-45.0 ABSOLUTE LYMPHOCYTES (test code = 27321119) 2950 cells/uL 850- 3900 PLATELET COUNT (test code = 83217046) 306 Thousand/uL 140-400 MCV (test code = 25417747) 80.2 fL 80.0-100.0 LIPID PANEL, [id number] 10:08:00 Test Item Value Reference Range Comments CHOLESTEROL, TOTAL (test code = 67921745) 277 mg/dL <200 HDL CHOLESTEROL (test code = 95666700) 38 mg/dL > OR = 50 NON HDL CHOLESTEROL (test code = 40415694) 239 mg/dL (calc) <130 CHOL/HDLC RATIO (test code = 72294483) 7.3 (calc) <5.0 TRIGLYCERIDES (test code = 84507635) 668 mg/dL <150 Hemoglobin A1C\S\2020-07-31 13:30:00 Test Item Value Reference Range Comments HgbA1C, Fingerstick (test code = 4548-4) 8.1 % 4-5.6 Assessments Condition Name Status Diagnosis Date Treating Clinici an Rheumatoid arthritis, unspecified Active Hypothyroidism, unspecified Active Lumbago with sciatica, left side Active Other chronic pain Active Essential (primary) hypertension Active Hypothyroidism, unspecified Active Other specified anxiety disorders Active Mixed hyperlipidemia Active Prsnl hx of TIA (TIA), 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 2 diabetes mellitus w diabetic Active neuropathic arthropathy Lumbago with sciatica, left side Active Essential (primary) hypertension Active Encounters Start End Encounter Admission Attending Care Care Encounter Date/Time Date/Time Type Type Clinicians Facility Department ID 2020-08-24 2020[facility]08[id number] 11:00:00 [facility] [phone] [id number] and [id number] [facility] [id number] [facility] 2020-08-03 2020-08-03 [facility] [id number] 11:00:00 11:00:00 Karlene Angulo [id number] s [id number] and [id number] [facility], 2020-07-31 2020-07-31 [facility] [id number] 13:30:00 13:30:00 Karlene Angulo [id number] s [id number] and [id number] [facility], Social History This patient has no known social history. Vital Signs This patient has no known vital signs.
== END 2020-09-05 15:32 | disposition home or self-care (01) ==
LOC: ER 13:22
DX: N30.00 Acute cystitis without hematuria (principal); R10.9 Unspecified abdominal pain; R30.0 Dysuria; R35.0 Frequency of micturition; R39.15 Urgency of urination; M54.5 Low back pain; E11.9 Type 2 diabetes mellitus without complications; Z79.84 Long term (current) use of oral hypoglycemic drugs; I10 Essential (primary) hypertension; Z79.899 Other long term (current) drug therapy; Z88.8 Allergy status to other drugs, medicaments and biological substances; Z88.1 Allergy status to other antibiotic agents; Z88.0 Allergy status to penicillin; F17.210 Nicotine dependence, cigarettes, uncomplicated
CPT/HCPCS: 36415; 74176; 80053; 81001; 83690; 85025; 87086; 87088; 87186; 99284

== ENCOUNTER 2020-10-28 17:08 | Emergency (ER) | payer MEDICARE, MEDICAID ==
[2020-10-28 17:38] VITALS: BP 171/98
--- NOTE | 2020-10-28 18:07 | ER Document Report ---
ED Medical Screen (RME) - General Stated Complaint: COUGH, HEADACHE BODY ACHE, Primary Care Provider: HUNTER MCMAHAN NP [Primary Care Provider] - Follow up as needed TRAVEL OUTSIDE OF THE [place] IN LAST 30 DAYS: No - HPI Notes: 10/28/20 18:04 Rapid Medical Exam HPI: this is a 54yo female c/o cough, sob, and chills X 2 weeks. spouse has similar symptoms. no treatments tried. no known covid contacts. Physical Exam: GENERAL: Well-appearing, well-nourished and in no acute distress. HEAD: Atraumatic, normocephalic. ENT: Moist mucous membranes. RESP: Respirations even and unlabored CV- Regular rate. NEURO: No focal neurological deficits. Moves all extremities spontaneously and on command. My involvement in this patients care was limited to a rapid initial assessment. A comprehensive ED assessment and evaluation of the patient, analysis of test results, treatment, and completion of the medical decision making process will be performed by other ER providers. - Related Data Allergies/Adverse Reactions: ciprofloxacin Allergy (Verified 10/28/20 18:02) ketorolac [From Toradol] Allergy (Verified 10/28/20 18:02) mirtazapine [From Remeron] Allergy (Verified 10/28/20 18:02) Penicillins Allergy (Verified 10/28/20 18:02) tramadol Allergy (Verified 10/28/20 18:02) nubane Allergy (Uncoded 10/28/20 18:02) Past Medical History - Past Medical History Cardiac Medical History: Reports: Hx Hypercholesterolemia, Hx Hypertension Endocrine Medical History: Reports: Hx Diabetes Mellitus Type 2 Psychiatric Medical History: Reports: Hx Bipolar Disorder Past Surgical History: Reports: Hx Gynecologic Surgery, Hx Orthopedic Surgery - back, Hx Tonsillectomy Physical Exam - Vital signs Vitals: Temp Pulse Resp BP Pulse Ox 99.2 F 79 16 171/98 H 99 10/28/20 17:36 10/28/20 17:36 10/28/20 17:36 10/28/20 17:36 10/28/20 17:36 Course - Vital Signs Vital signs: Temp Pulse Resp BP Pulse Ox 99.2 F 79 16 171/98 H 99 10/28/20 17:36 10/28/20 17:36 10/28/20 17:36 10/28/20 17:36 10/28/20 17:36 Doctor's Discharge - Discharge Referrals: HUNTER MCMAHAN, COMMUNICATION COORDINATOR [Primary Care Provider] - Follow up as needed
--- NOTE | 2020-10-28 19:51 | RADIOLOGY REPORT (SQ) ---
EXAM DESCRIPTION: CHEST SINGLE VIEW IMAGES COMPLETED DATE/TIME: 10/28/2020 4:44 pm REASON FOR STUDY: cough, sob, chills COMPARISON: None. EXAM PARAMETERS: NUMBER OF VIEWS: One view. TECHNIQUE: Single frontal radiographic view of the chest acquired. RADIATION DOSE: NA LIMITATIONS: None. FINDINGS: LUNGS AND PLEURA: No opacities, masses or pneumothorax. No pleural effusion. MEDIASTINUM AND HILAR STRUCTURES: No masses. Contour normal. HEART AND VASCULAR STRUCTURES: Heart normal in size. Normal vasculature. BONES: No acute findings. HARDWARE: None in the chest. OTHER: No other significant finding. IMPRESSION: NO ACUTE RADIOGRAPHIC FINDING IN THE CHEST. TECHNICAL DOCUMENTATION: JOB ID: [id number] 2010 [employer]- All Rights Reserved Reading location - IP/workstation name: [email or web address]
== END 2020-10-28 20:55 | disposition left against medical advice (07) ==
LOC: ER 17:08
DX: R05 Cough (principal); R51.9 Headache, unspecified; R06.02 Shortness of breath; E78.00 Pure hypercholesterolemia, unspecified; I10 Essential (primary) hypertension; E11.9 Type 2 diabetes mellitus without complications; Z88.3 Allergy status to other anti-infective agents; Z88.0 Allergy status to penicillin
CPT/HCPCS: 71045; 99283